=== PATIENT | female | born 1935 | race Two or more races ===

== ENCOUNTER 2022-09-30 16:00 | Inpatient (IN) | payer OTHER, MEDICAID ==
[~2022-09-30] VITALS: Ht 170.7 cm; Wt 74.4 kg
[2022-09-30 20:27] VITALS: BP 125/51
[2022-09-30] MEDS ORDERED: ONDANSETRON HCL 4 MG/2 ML VIAL IV PRN (21:15)
[2022-09-30] MEDS ORDERED: HYDROcodone-ACET 5/325MG TAB PO PRN (21:15)
[2022-09-30] MEDS ORDERED: hydrALAZINE HCL 10 MG TAB PO PRN (21:15)
[2022-09-30] MEDS ORDERED: POLYETHYLENE GLYCOL 17 GM PWDR PO PRN (21:15)
[2022-09-30] MEDS ORDERED: ACETAMINOPHEN 325 MG TAB PO PRN (21:15)
[2022-09-30] MEDS ORDERED: SENNA 8.6 MG TAB PO PRN (21:15)
[2022-09-30 22:00] VITALS: BP 110/48
[2022-09-30] MEDS: methylPREDNISolone SOD SUCC 40 MG/ML VL IV SCH (23:42)
[2022-09-30] MEDS: ATORVASTATIN 20 MG TAB PO SCH (23:43)
[2022-09-30] MEDS: OXYBUTYNIN CHL 5 MG TAB PO SCH (23:43)
[2022-09-30] MEDS: AZITHROMYCIN 250 MG TAB PO SCH (23:43)
[2022-10-01] MEDS: ALBUTEROL SULF 2.5 MG/0.5ML(0.5%) NEB SOLN NEB SCH ×6 (00:17→22:02)
[2022-10-01 02:25] VITALS: BP 125/51
[2022-10-01 05:00] VITALS: BP 102/46
[2022-10-01] MEDS: methylPREDNISolone SOD SUCC 40 MG/ML VL IV SCH ×3 (05:54→21:13)
[2022-10-01] MEDS: LEVOTHYROXINE SODIUM 50 MCG TAB PO SCH (05:54)
[2022-10-01 06:13] LABS: Basophils # (auto) 0 10 ^3/uL (0-0.2); Basophils % (auto) 0.1 % (0.0-2.0); Eosinophils # (auto) 0 10 ^3/uL (0-0.8); Hemoglobin 11.2 g/dL (12.2-16.2); Lymphocytes % (auto) 5.2 % (10.0-50.0); Mean Corpuscular Hemoglobin 29.4 pg (28.0-32.0); Mean Corpuscular Hgb Conc. 32.8 g/dL (32.0-36.0); Mean Corpuscular Volume 89.6 fL (80.0-100.0); Monocytes # (auto) 0.3 10 ^3/uL (0-1.3); Monocytes % (auto) 1.5 % (0.0-12.0); Neutrophils # (auto) 17.4 10 ^3/uL (1.6-8.6); Neutrophils % (auto) 93.2 % (37.0-80.0); Red Cell Distribution Width 15.4 % (11.8-14.3); White Blood Cell 18.6 10^3/uL (4.4-10.8)
[2022-10-01 06:27] LABS: Calcium 8.4 mg/dL (8.5-10.1)
[2022-10-01 06:29] LABS: BUN/Creatinine Ratio 31.3 (10.0-20.0)
[2022-10-01 09:00] VITALS: BP 103/51
[2022-10-01] MEDS: OXYBUTYNIN CHL 5 MG TAB PO SCH ×2 (09:57→21:13)
[2022-10-01] MEDS: LISINOPRIL 10 MG TAB PO SCH (09:57)
[2022-10-01 12:41] VITALS: BP 110/44
[2022-10-01] MEDS: ACETYLCYSTEINE 20%(200MG/ML) SOL 4ML NEB SCH ×2 (14:09→22:00)
[2022-10-01 17:00] VITALS: BP 100/39
[2022-10-01] MEDS: AZITHROMYCIN 250 MG TAB PO SCH (21:14)
[2022-10-01 22:00] VITALS: BP 135/60
[2022-10-01] MEDS: ATORVASTATIN 20 MG TAB PO SCH (22:00)
[2022-10-02] MEDS: ALBUTEROL SULF 2.5 MG/0.5ML(0.5%) NEB SOLN NEB SCH ×6 (02:00→21:53)
[2022-10-02 05:00] VITALS: BP 116/48
[2022-10-02] MEDS: LEVOTHYROXINE SODIUM 50 MCG TAB PO SCH (06:20)
[2022-10-02] MEDS: methylPREDNISolone SOD SUCC 40 MG/ML VL IV SCH ×3 (06:28→23:24)
[2022-10-02] MEDS: ACETYLCYSTEINE 20%(200MG/ML) SOL 4ML NEB SCH ×3 (06:56→21:53)
[2022-10-02 07:11] LABS: Basophils # (auto) 0 10 ^3/uL (0-0.2); Eosinophils # (auto) 0 10 ^3/uL (0-0.8); Hematocrit 34.3 % (36.0-46.0); Hemoglobin 11.5 g/dL (12.2-16.2); Lymphocytes # (auto) 0.9 10 ^3/uL (0.4-5.4); Mean Corpuscular Hgb Conc. 33.5 g/dL (32.0-36.0); Mean Corpuscular Volume 89.5 fL (80.0-100.0); Monocytes # (auto) 0.5 10 ^3/uL (0-1.3); Neutrophils # (auto) 22.1 10 ^3/uL (1.6-8.6); Nucleated Red Blood Cells % 0.1 %; Red Blood Cells 3.83 10^6/uL (4.0-5.20); Red Cell Distribution Width 15.2 % (11.8-14.3); White Blood Cell 23.5 10^3/uL (4.4-10.8)
[2022-10-02 07:27] LABS: Calcium 8.6 mg/dL (8.5-10.1); Potassium 4.5 mmol/L (3.5-5.1)
[2022-10-02 07:29] LABS: BUN/Creatinine Ratio 45.5 (10.0-20.0)
[2022-10-02 08:00] VITALS: BP 102/45
[2022-10-02] MEDS: OXYBUTYNIN CHL 5 MG TAB PO SCH ×2 (10:04→23:22)
[2022-10-02] MEDS: LISINOPRIL 10 MG TAB PO SCH (10:04)
[2022-10-02 12:55] VITALS: BP 120/51
[2022-10-02 16:43] VITALS: BP 119/54
[2022-10-02 22:00] VITALS: BP 117/50
[2022-10-02] MEDS: ATORVASTATIN 20 MG TAB PO SCH (23:23)
[2022-10-02] MEDS: AZITHROMYCIN 250 MG TAB PO SCH (23:23)
[2022-10-03] MEDS: ALBUTEROL SULF 2.5 MG/0.5ML(0.5%) NEB SOLN NEB SCH ×6 (02:00→21:41)
[2022-10-03 05:00] VITALS: BP 136/64
[2022-10-03 05:59] LABS: Basophils # (auto) 0 10 ^3/uL (0-0.2); Basophils % (auto) 0.1 % (0.0-2.0); Eosinophils # (auto) 0 10 ^3/uL (0-0.8); Hematocrit 32.7 % (36.0-46.0); Hemoglobin 10.9 g/dL (12.2-16.2); Lymphocytes # (auto) 0.8 10 ^3/uL (0.4-5.4); Lymphocytes % (auto) 5.1 % (10.0-50.0); Mean Corpuscular Hemoglobin 29.3 pg (28.0-32.0); Mean Corpuscular Hgb Conc. 33.4 g/dL (32.0-36.0); Mean Corpuscular Volume 87.7 fL (80.0-100.0); Monocytes # (auto) 0.3 10 ^3/uL (0-1.3); Monocytes % (auto) 1.8 % (0.0-12.0); Neutrophils # (auto) 14.3 10 ^3/uL (1.6-8.6); Red Blood Cells 3.73 10^6/uL (4.0-5.20); White Blood Cell 15.4 10^3/uL (4.4-10.8)
[2022-10-03] MEDS: ACETYLCYSTEINE 20%(200MG/ML) SOL 4ML NEB SCH ×3 (06:09→21:42)
[2022-10-03 06:26] LABS: Calcium 8.4 mg/dL (8.5-10.1); Potassium 4.9 mmol/L (3.5-5.1)
[2022-10-03 06:29] LABS: BUN/Creatinine Ratio 48.8 (10.0-20.0)
[2022-10-03] MEDS: methylPREDNISolone SOD SUCC 40 MG/ML VL IV SCH ×3 (06:52→21:39)
[2022-10-03] MEDS: LEVOTHYROXINE SODIUM 50 MCG TAB PO SCH (06:54)
[2022-10-03 09:00] VITALS: BP 140/58
[2022-10-03] MEDS: OXYBUTYNIN CHL 5 MG TAB PO SCH ×2 (10:13→21:37)
[2022-10-03] MEDS: LISINOPRIL 10 MG TAB PO SCH (10:14)
[2022-10-03 13:00] VITALS: BP 125/50
[2022-10-03 17:00] VITALS: BP 148/80
[2022-10-03] MEDS: AZITHROMYCIN 250 MG TAB PO SCH (21:37)
[2022-10-03] MEDS: ATORVASTATIN 20 MG TAB PO SCH (21:39)
[2022-10-03 22:00] VITALS: BP 147/59
[2022-10-04] MEDS: ALBUTEROL SULF 2.5 MG/0.5ML(0.5%) NEB SOLN NEB SCH ×6 (02:00→22:21)
[2022-10-04 02:36] VITALS: BP 147/59
[2022-10-04 05:00] VITALS: BP 151/57
[2022-10-04] MEDS: methylPREDNISolone SOD SUCC 40 MG/ML VL IV SCH ×3 (05:59→22:14)
[2022-10-04] MEDS: LEVOTHYROXINE SODIUM 50 MCG TAB PO SCH (06:01)
[2022-10-04] MEDS: ACETYLCYSTEINE 20%(200MG/ML) SOL 4ML NEB SCH (06:40)
[2022-10-04] MEDS: LISINOPRIL 10 MG TAB PO SCH (09:05)
[2022-10-04] MEDS: OXYBUTYNIN CHL 5 MG TAB PO SCH ×2 (09:05→22:13)
[2022-10-04 09:28] VITALS: BP 144/55
[2022-10-04 12:50] VITALS: BP 135/42
[2022-10-04 17:00] VITALS: BP 142/60
[2022-10-04] MEDS: AZITHROMYCIN 250 MG TAB PO SCH (20:43)
[2022-10-04 22:00] VITALS: BP 141/50
[2022-10-04] MEDS: ATORVASTATIN 20 MG TAB PO SCH (22:14)
[2022-10-05] MEDS: ALBUTEROL SULF 2.5 MG/0.5ML(0.5%) NEB SOLN NEB SCH ×4 (02:00→13:48)
[2022-10-05 05:00] VITALS: BP 131/42
[2022-10-05] MEDS: methylPREDNISolone SOD SUCC 40 MG/ML VL IV SCH (06:24)
[2022-10-05] MEDS: LEVOTHYROXINE SODIUM 50 MCG TAB PO SCH (06:25)
[2022-10-05 08:38] VITALS: BP 133/50
[2022-10-05] MEDS: OXYBUTYNIN CHL 5 MG TAB PO SCH (09:26)
[2022-10-05] MEDS: LISINOPRIL 10 MG TAB PO SCH (09:26)
[2022-10-05 12:44] VITALS: BP 124/45
[2022-10-05 13:56] VITALS: BP 133/50
[2022-10-05] MEDS ORDERED: methylPREDNISolone SOD SUCC 40 MG/ML VL IV SCH (22:00)
== END 2022-10-05 17:20 | disposition home or self-care (01) | DRG 189 ==
LOC: TELE-WESTW 19:37
PROVIDERS: ADMIT Internal Medicine; ATTEND Internal Medicine
DX: J96.21 Acute and chronic respiratory failure with hypoxia (principal); J45.901 Unspecified asthma with (acute) exacerbation; J90 Pleural effusion, not elsewhere classified; J98.11 Atelectasis; E87.6 Hypokalemia; I10 Essential (primary) hypertension; J84.10 Pulmonary fibrosis, unspecified; E03.9 Hypothyroidism, unspecified; E78.5 Hyperlipidemia, unspecified; I89.0 Lymphedema, not elsewhere classified; Z88.2 Allergy status to sulfonamides
CPT/HCPCS: 36415; 80048; 85025; 87070; 87081; 87086; 87205; 94640; G0378

== ENCOUNTER 2023-08-26 23:53 | Emergency (ER) | payer OTHER, MEDICAID ==
[~2023-08-26] VITALS: Ht 167.6 cm; Wt 77.2 kg
[2023-08-27 00:10] VITALS: PULSE 88; RESP 22; O2SAT 93
[2023-08-27 01:39] LABS: Chloride 108 mmol/L (98-107); Potassium 3.9 mmol/L (3.5-5.1); Sodium 139 mmol/L (136-145)
[2023-08-27 01:40] LABS: Anion Gap 8 (5-15); Calcium 9.8 mg/dL (8.5-10.1); Carbon Dioxide 23 mmol/L (20-30)
[2023-08-27 01:41] LABS: Urine Bacteria None Seen /hpf (None Seen)
[2023-08-27 01:45] LABS: BUN/Creatinine Ratio 15.7 (10.0-20.0); Blood Urea Nitrogen 14 mg/dL (9-23); Glucose 89 mg/dL (74-106)
[2023-08-27 01:47] LABS: Urine Blood Negative /uL (Negative); Urine Clarity Clear (Clear); Urine Color Light-Yellow (Yellow); Urine Protein, UAD Negative (Negative); Urine Specific Gravity 1.011 (1.001-1.035); Urine Urobilinogen Normal (Negative); Urine WBC <1 /hpf (0 - 5)
[2023-08-27 01:59] LABS: Basophils # (auto) 0 10 ^3/uL (0-0.2)
[2023-08-27 02:24] LABS: Basophils % (auto) 0.4 % (0.0-2.0); Eosinophils # (auto) 0.1 10 ^3/uL (0-0.8); Eosinophils % (auto) 0.5 % (0.0-7.0); Hematocrit 45.1 % (36.0-46.0); Hemoglobin 14.7 g/dL (12.2-16.2); Lymphocytes # (auto) 2.3 10 ^3/uL (0.4-5.4); Lymphocytes % (auto) 18.4 % (10.0-50.0); Mean Corpuscular Hemoglobin 30.1 pg (28.0-32.0); Mean Corpuscular Hgb Conc. 32.6 g/dL (32.0-36.0); Mean Corpuscular Volume 92.3 fL (80.0-100.0); Monocytes # (auto) 0.8 10 ^3/uL (0-1.3); Monocytes % (auto) 6.7 % (0.0-12.0); Neutrophils # (auto) 9.3 10 ^3/uL (1.6-8.6); Red Blood Cells 4.88 10^6/uL (4.0-5.20); Red Cell Distribution Width 14.7 % (11.8-14.3); White Blood Cell 12.6 10^3/uL (4.4-10.8)
[2023-08-27 03:10] VITALS: TEMP 98
[2023-08-27 03:15] VITALS: PULSE 77; RESP 10; O2SAT 98
[2023-08-27 04:00] VITALS: BP 134/60; PULSE 63; RESP 16; O2SAT 100
== END 2023-08-27 10:14 | disposition home or self-care (01) ==
LOC: EDBD 23:53 → ER 23:53
DX: S09.8XXA Other specified injuries of head, initial encounter (principal); R07.81 Pleurodynia; I11.0 Hypertensive heart disease with heart failure; I50.9 Heart failure, unspecified; Z88.2 Allergy status to sulfonamides; W18.09XA Striking against other object with subsequent fall, initial encounter; Y93.89 Activity, other specified; Y92.89 Other specified places as the place of occurrence of the external cause; Y99.8 Other external cause status
CPT/HCPCS: 36415; 70450; 71045; 80048; 81001

== ENCOUNTER 2024-06-22 10:06 | Inpatient (IN) | payer OTHER, MEDICAID ==
[~2024-06-22] VITALS: Ht 167.6 cm; Wt 83.3 kg
--- NOTE | 2024-06-22 10:29 | ECG ---
[facility] Test Date: 2024-06-22 Test Time: 10:15:12 Pat Name: DEWAYNE MICHELLE Department: ER Room: 0274T Gender: F Enrollment Advisor: KENNEY : 1935 Requested By: GINI MCGREGOR Order Number: [id number] Reading MD: Itz Manuel Measurements Intervals [place] Rate: 83 P: 79 IN: 225 QRS: 61 QRSD: 86 T: 55 QT: 397 QTc: 467 Interpretive Statements Sinus rhythm Ventricular premature complex Prolonged IN interval Electronically Signed On 06-23-2024 17:51:27 PST by Itz Manuel Please click the below link to view image of tracing.
--- NOTE | 2024-06-22 10:45 | DVH ---
EXAM: XY CHEST PORTABLE Indication: CP Technique: Single frontal view of the chest was obtained Comparison: XY CHEST PORTABLE on DOS: 08/27/23 FINDINGS: Lines and Tubes: None Lungs: No focal consolidation. Pleura: No effusion. No pneumothorax. Cardiomediastinal contours: Unremarkable Bones: No acute osseous abnormality. IMPRESSION: No acute cardiopulmonary disease.
[2024-06-22 10:53] LABS: Basophils # (auto) 0 10 ^3/uL (0-0.2); Basophils % (auto) 0.4 % (0.0-2.0); Eosinophils # (auto) 0.1 10 ^3/uL (0-0.8); Hematocrit 41.3 % (36.0-46.0); Hemoglobin 13.6 g/dL (12.2-16.2); Lymphocytes # (auto) 1.5 10 ^3/uL (0.4-5.4); Lymphocytes % (auto) 18.2 % (10.0-50.0); Mean Corpuscular Hemoglobin 29.7 pg (28.0-32.0); Monocytes # (auto) 0.6 10 ^3/uL (0-1.3); Monocytes % (auto) 6.8 % (0.0-12.0); Neutrophils # (auto) 5.9 10 ^3/uL (1.6-8.6); Neutrophils % (auto) 73.6 % (37.0-80.0); Nucleated Red Blood Cells % 0.1 %; Platelet Count (auto) 184 10^3/uL (140-450); Red Blood Cells 4.59 10^6/uL (4.0-5.20); Red Cell Distribution Width 14.5 % (11.8-14.3); White Blood Cell 8.1 10^3/uL (4.4-10.8)
[2024-06-22 10:59] VITALS: PULSE 78; RESP 12; O2SAT 98
--- NOTE | 2024-06-22 10:59 | ED.PDOC ---
History of Present Illness HPI Comments 89-year-old female who comes in with chief complaint of status post fall in the restroom on Tuesday night. The patient fell down and landed on the left chest. She did not come in to the ER but this morning she started complaining of increased pain as well as some shortness for breath. There was no loss of consciousness or any head trauma. When the paramedics arrived, they heard decreased lung sounds on the left with some rhonchi. They did give her a hand- held nebulizer of albuterol which seemed to help some. The patient denies any vomiting or diarrhea. The patient currently resides [facility]. 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 Location: Left rib pain Associated signs and symptoms Pain to the left rib area with some shortness for breath Past Medical History PAST MEDICAL HISTORY: Asthma, CHF, COPD, High Lipids, HTN, Thyroid, TIA Surgical History: Hysterectomy, Tonsillectomy Surgical History (Other): Cataract surgery BRAID MAKER History: No Pertinent BRAID MAKER History Family History Family History: Family hx of heart nicolas Social History Smoker: Non-Smoker Alcohol: Denies ETOH Use Drugs: Denies Drug Use Lives In: Home Constitutional: denies: chills, diaphoresis, fatigue, fever, malaise, sweats, weakness, others EENTM: denies: blurred vision, double vision, ear bleeding, ear discharge, ear drainage, ear pain, ear ringing, eye pain, eye redness, hearing loss, mouth pain, mouth swelling, nasal discharge, nose bleeding, nose congestion, nose pain, photophobia, tearing, throat pain, throat swelling, voice changes, others Respiratory: reports: shortness of breath; denies: cough, hemoptysis, orthopnea, SOB at rest, SOB with excertion, stridor, wheezing, others Cardiovascular: reports: chest pain (Left-sided rib pain); denies: dizzy spells, diaphoresis, Dyspnea on exertion, edema, irregular heart beat, left arm pain, lightheadedness, palpitations, PND, syncope, others Gastrointestinal: denies: abdomen distended, abdominal pain, blood streaked bowels, constipated, diarrhea, dysphagia, difficulty swallowing, hematemesis, melena, nausea, poor appetite, poor fluid intake, rectal bleeding, rectal pain, vomiting, others Genitourinary: denies: abnormal vagina bleeding, burning, dyspareunia, dysuria, flank pain, frequency, hematuria, incontinence, pain, , vagina discharge, urgency, others Neurological: denies: dizziness, fainting, headache, left sided numbness, left sided weakness, numbness, paresthesia, pre-existing deficit, right sided numbness, right sided weakness, seizure, speech problems, tingling, tremors, weakness, others Musculoskeletal: denies: back pain, gout, joint pain, joint swelling, muscle pain, muscle stiffness, neck pain, others Integumetry: denies: bruises, change in color, change in hair/nails, dryness, laceration, lesions, lumps, rash, wounds, others Allergic/Immunocompromised: denies: Difficulty Healing, Frequent Infections, Hives, Itching, others Hematologic/Lymphatic: denies: anemia, blood clots, easy bleeding, easy bruising, swollen glands, others Endocrine: denies: excessive hunger, excessive sweating, excessive thirst, excessive urination, flushing, intolerance to cold, intolerance to heat, unexplained weight gain, unexplained weight loss, others Psychiatric: denies: anxiety, bipolar disorder, depression, hopeless, panic disorder, schizophrenia, sleepless, suicidal, others Physical Exam General Appearance: Moderate Distress HEENT: Normal ENT Inspection, Pharynx Normal, TMs Normal Neck: Full Range of Motion, Non-Tender, Normal, Normal Inspection Respiratory: Decreased Breath Sounds (Decreased on the left side), No Accessory Muscle Use, Respiratory Distress, Other (Tenderness to the left rib area) Cardiovascular: No Edema, No JVD, No Murmur, No Gallop, Normal Peripheral Pulses, Regular Rate/Rhythm Breast Exam: Deferred Gastrointestinal: No Organomegaly, Non Tender, No Pulsatile Mass, Normal Bowel Sounds, Soft Genitalia: Deferred Pelvic: Deferred Rectal: Deferred Extremities: No calf tenderness, Normal capillary refill, Normal inspection, Normal range of motion, Non-tender, No pedal edema Musculoskeletal : Apperance: Normal Neurologic: Alert, hospital staff pharmacist II-XII nml as Tested, No Motor Deficits, Normal Affect, Normal Mood, No Sensory Deficits Cerebellar Function: Normal Reflexes: Normal Skin: Dry, Normal Color, Warm Lymphatic: No Adenopathy Was a procedure done? Was a procedure done?: No EKG EKG : Pulse Rate (adult): 89 [place]: Normal Cardiac Rhythm: NSR Block: None ST: Nonsp Differential Dx Considerations may include: Contusion, fracture, pneumothorax X-Ray, Labs, Meds, VS Vital Signs Date Time Temp Pulse Resp B/P (MAP) Pulse Ox O2 Delivery O2 Flow Rate FiO2 06/22/24 12:00 76 06/22/24 11:04 98.6 78 12 133/58 (83) 98 98.6 06/22/24 10:59 78 12 98 Room Air* 0 21 06/22/24 10:59 89 06/22/24 10:15 98.2 77 22 147/53 (84) 96 06/22/24 10:15 83 06/22/24 10:14 22 96 Nasal Cannula* 2 28 Lab Test 06/22/24 14:00 06/22/24 11:40 06/22/24 10:40 Range/Units Troponin I High Sensitivity Pending 5 </=34 ng/L Urine Color Colorless Yellow Urine Clarity Turbid H Clear Urine pH 6.0 5.0-9.0 Urine Specific [place] 1.004 1.001-1.035 Urine Protein Negative Negative Urine Ketones Negative Negative Urine Blood Trace H Negative /uL Urine Nitrite Negative Negative Urine Bilirubin Negative Negative Urine Urobilinogen Normal Negative mg/dL Urine Leukocyte Esterase 3+ Negative /uL Urine RBC 4 0 - 4 /hpf Urine Microscopic WBC 223 H 0-5 /HPF Urine Squamous Epithelial Cells Few <5 /hpf Urine Bacteria Few H None Seen /hpf Urine Yeast (Budding) Occasional None Seen /hpf Urine Glucose Normal Normal mg/dL White Blood Count 8.1 4.4-10.8 10^3/uL Red Blood Count 4.59 4.0-5.20 10^6/uL Hemoglobin 13.6 12.2-16.2 g/dL Hematocrit 41.3 36.0-46.0 % Mean Corpuscular Volume 90.0 80.0-100.0 fL Mean Corpuscular Hemoglobin 29.7 28.0-32.0 pg Mean Corpuscular Hemoglobin Concent 33.0 32.0-36.0 g/dL Red Cell Distribution Width 14.5 H 11.8-14.3 % Platelet Count 184 140-450 10^3/uL Mean Platelet Volume 7.2 6.9-10.8 fL Neutrophils (%) (Auto) 73.6 37.0-80.0 % Lymphocytes (%) (Auto) 18.2 10.0-50.0 % Monocytes (%) (Auto) 6.8 0.0-12.0 % Eosinophils (%) (Auto) 1.0 0.0-7.0 % Basophils (%) (Auto) 0.4 0.0-2.0 % Neutrophils # (Auto) 5.9 1.6-8.6 10 ^3/uL Lymphocytes # (Auto) 1.5 0.4-5.4 10 ^3/uL Monocytes # (Auto) 0.6 0-1.3 10 ^3/uL Eosinophils # (Auto) 0.1 0-0.8 10 ^3/uL Basophils # (Auto) 0 0-0.2 10 ^3/uL Nucleated Red Blood Cells 0.1 % D-Dimer, Quantitative 1.42 H 0.0-0.49 mg/L FEU Sodium Level 137 136-145 mmol/L Potassium Level 4.1 3.5-5.1 mmol/L Chloride Level 103 98-107 mmol/L Carbon Dioxide Level 26 20-31 mmol/L Anion Gap 8 5-15 Blood Urea Nitrogen 22 9-23 mg/dL Creatinine 0.98 0.550-1.02 mg/dL Glomerular Filtration Rate Calc 55 >90 mL/min BUN/Creatinine Ratio 22.4 H 10.0-20.0 Serum Glucose 109 H 74-106 mg/dL Calcium Level 9.6 8.7-10.4 mg/dL B-Type Natriuretic Peptide 48.08 0-100 pg/mL The patient's CBC is within normal limits. The chest x-ray shows no sign of any abnormalities The D-dimer is elevated 1.42 The CBC and chemistry panel are within normal limits At this time, the patient was being admitted to the hospitalist. The patient was given Rocephin 1 g IV piggyback Images Reviewed?: Images reviewed and evaluated by me Time of 1ST Reevaluation: 10:59 Reevaluation 1ST: Improved Patient Education/Counseling: Diagnosis, Treatment, Prognosis Family Education/Counseling: No Family Present Departure 1 Departure Time of Disposition: 11:39 Impression: Primary Impression: Shortness of breath Additional Impressions: Elevated d-dimer History of fall Generalized weakness UTI (urinary tract infection) Qualified Codes: N30.01 - Acute cystitis with hematuria Disposition: ADMITTED INPATIENT Admit to: Tele Condition: Fair e-Prescriptions Unable to Obtain Active Prescriptions or Reported Meds Critical Care Note Critical Care Time?: No Stability Stability form required: Yes Unstable for transfer: Telemetry monitoring (Telemetry monitoring required), ED Physician Assesment (Clinical assesment) Heart Score Heart Score: Heart Score Response (Comments) Value History N/A 0 EKG N/A 0 Age N/A 0 Risk Factors N/A 0 Troponin N/A 0 Total 0 GINI MCGREGOR MD Jun 22, 2024 10:59
[2024-06-22 11:32] LABS: Chloride 103 mmol/L (98-107); Potassium 4.1 mmol/L (3.5-5.1); Sodium 137 mmol/L (136-145)
[2024-06-22 11:33] LABS: Anion Gap 8 (5-15); Carbon Dioxide 26 mmol/L (20-31)
[2024-06-22 11:34] LABS: Calcium 9.6 mg/dL (8.7-10.4)
[2024-06-22 11:39] LABS: BUN/Creatinine Ratio 22.4 (10.0-20.0); Blood Urea Nitrogen 22 mg/dL (9-23)
[2024-06-22 11:40] LABS: Glucose 109 mg/dL (74-106)
[2024-06-22 14:14] LABS: Urine Bacteria FEW /hpf (None Seen); Urine Blood TRACE /uL (Negative); Urine Budding Yeast OCCASIONAL /hpf (None Seen); Urine Clarity Turbid (Clear); Urine Color Colorless (Yellow); Urine Protein, UAD Negative (Negative); Urine Specific Gravity 1.004 (1.001-1.035); Urine Squamous Epithelial Cell FEW /hpf (<5); Urine Urobilinogen Normal (Negative); Urine WBC 223 /HPF (0-5)
[2024-06-22] MEDS ORDERED: NITROGLYCERIN 0.4 MG SL TAB SL PRN (14:45)
[2024-06-22] MEDS ORDERED: ACETAMINOPHEN 500 MG TAB or CAP PO PRN (14:45)
--- NOTE | 2024-06-22 14:54 | DVHHP2 ---
History of Present Illness Reason for Visit: Mechanical fall with residual left rib pain History of Present Illness The patient was an 89-year-old female has poor with the hospital by EMS with reports of shortness of breaths, left rib pain after having a mechanical fall. Patient reports that she fell and hit the bathtub approximately two days ago at her residential facility. She states that she was had progressive shortness of breath, decreased ambulation, with the pain worsening today requiring her to call 911. The patient was overall a poor historian. Appears that her insurance has replaced as on hospice care. She does report a significant history of hypertension, COPD, and congestive heart failure. Upon further assessment of the patient, she was found to have severe right lower extremity swelling with redness. Patient will be admitted in the hospital for further workup. Cardiovascular: CHF, HTN Pulmonary: COPD Past Surgical History: Other (Denies) Family History: None ALCOHOL: none Drugs: None Lives: Other (Residential facility) Review of Systems Constitutional: No: Fever, Chills, Sweats, Weakness, Malaise, Other Eyes: No: Pain, Vision change, Conjunctivae inflammation, Eyelid inflammation, Other, Redness ENT: No: Ear pain, Ear discharge, Nose pain, Nose discharge, Nose congestion, Mouth pain, Mouth swelling, Throat pain, Throat swelling, Other Respiratory: Shortness of breath, Pleuritic Pain Cardiovascular: Chest Pain Gastrointestinal: No: Nausea, Vomiting, Abdominal Pain, Diarrhea, Constipation, Melena, Hematochezia, Other Genitourinary: No Dysuria, No Frequency, No Incontinence, No Hematuria, No Retention, No Other Musculoskeletal: No: other, neck pain, shoulder pain, arm pain, back pain, hand pain, leg pain, foot pain Skin: No: Rash, Lesions, Jaundice, Bruising, Other Neurological: No: Weakness, Numbness, Incoordination, Change in speech, Confusion, Seizures, Other Allergies: Coded Allergies: Sulfa Antibiotics (Verified Allergy, Unknown, 09/30/22) Exam Vital Signs Vital Signs Date Time Temp Pulse Resp B/P (MAP) Pulse Ox O2 Delivery O2 Flow Rate FiO2 06/22/24 12:00 76 06/22/24 11:04 98.6 12 133/58 (83) 98 98.6 06/22/24 10:59 Room Air* 0 21 General Appearance: Alert, Oriented X3, Cooperative, mild distress HEENT: Atraumatic, PERRLA Respiratory: Clear to auscultation, Normal air movement, Other (Tenderness with assessment of chest cavity) Cardiovascular: Normal S1, Normal S2 Abdominal: Normal bowel sounds, Soft, No tenderness Extremities: No clubbing, No cyanosis, Normal pulses, Other (Redness and swelling to right lower extremity) Skin: No rashes, No breakdown Psych/Mental Status: Mental status NL, Mood NL Labs/Xrays Labs Test 06/22/24 14:00 06/22/24 11:40 06/22/24 10:40 Range/Units Urine Color Colorless Yellow Urine Clarity Turbid H Clear Urine pH 6.0 5.0-9.0 Urine Specific [place] 1.004 1.001-1.035 Urine Protein Negative Negative Urine Ketones Negative Negative Urine Blood Trace H Negative /uL Urine Nitrite Negative Negative Urine Bilirubin Negative Negative Urine Urobilinogen Normal Negative mg/dL Urine Leukocyte Esterase 3+ Negative /uL Urine RBC 4 0 - 4 /hpf Urine Microscopic WBC 223 H 0-5 /HPF Urine Squamous Epithelial Cells Few <5 /hpf Urine Bacteria Few H None Seen /hpf Urine Yeast (Budding) Occasional None Seen /hpf Urine Glucose Normal Normal mg/dL White Blood Count 8.1 4.4-10.8 10^3/uL Red Blood Count 4.59 4.0-5.20 10^6/uL Hemoglobin 13.6 12.2-16.2 g/dL Hematocrit 41.3 36.0-46.0 % Mean Corpuscular Volume 90.0 80.0-100.0 fL Mean Corpuscular Hemoglobin 29.7 28.0-32.0 pg Mean Corpuscular Hemoglobin Concent 33.0 32.0-36.0 g/dL Red Cell Distribution Width 14.5 H 11.8-14.3 % Platelet Count 184 140-450 10^3/uL Mean Platelet Volume 7.2 6.9-10.8 fL Neutrophils (%) (Auto) 73.6 37.0-80.0 % Lymphocytes (%) (Auto) 18.2 10.0-50.0 % Monocytes (%) (Auto) 6.8 0.0-12.0 % Eosinophils (%) (Auto) 1.0 0.0-7.0 % Basophils (%) (Auto) 0.4 0.0-2.0 % Neutrophils # (Auto) 5.9 1.6-8.6 10 ^3/uL Lymphocytes # (Auto) 1.5 0.4-5.4 10 ^3/uL Monocytes # (Auto) 0.6 0-1.3 10 ^3/uL Eosinophils # (Auto) 0.1 0-0.8 10 ^3/uL Basophils # (Auto) 0 0-0.2 10 ^3/uL Nucleated Red Blood Cells 0.1 % D-Dimer, Quantitative 1.42 H 0.0-0.49 mg/L FEU Sodium Level 137 136-145 mmol/L Potassium Level 4.1 3.5-5.1 mmol/L Chloride Level 103 98-107 mmol/L Carbon Dioxide Level 26 20-31 mmol/L Anion Gap 8 5-15 Blood Urea Nitrogen 22 9-23 mg/dL Creatinine 0.98 0.550-1.02 mg/dL Glomerular Filtration Rate Calc 55 >90 mL/min BUN/Creatinine Ratio 22.4 H 10.0-20.0 Serum Glucose 109 H 74-106 mg/dL Calcium Level 9.6 8.7-10.4 mg/dL B-Type Natriuretic Peptide 48.08 0-100 pg/mL Assessment/Plan Assessment/Plan Impression: -mechanical fall -elevated D-dimer, rule out pulmonary embolism -acute decompensated diastolic heart failure -right lower extremity cellulitis -COPD -primary hypertension Plan: -admit to telemetry unit -echocardiogram -IV diuresis -antibiotic therapy: Doxycycline, Rocephin -CT angiogram of the chest. Unsure if patient has any allergies to contrast or shellfish. Patient will be premedicated with Solu-Medrol, Benadryl, Pepcid -bronchodilators as needed -pain management -repeat labs in a.m. -DVT study Total time spent with patient discussing and formulating plan of care: 35 minutes. This medical document was created using an electronic medical record system with [employer] system. Although this document has been carefully reviewed, there may still be some phonetic and typographical errors. These areas are purely typographical due to imperfections of the software programs, and do not reflect any compromise in the patient's medical care. Plan discussed with: Patient, Other (RN) My Orders Orders - KYLIE MODI VALUATION MANAGER Procedure Category Date Status Time Admit ADMIT 06/22/24 Verified 14:35 Nitroglycerin PHA 06/22/24 Verified Sublingual (Ntrostat 14:45 Morphine Sulfate PHA 06/22/24 Verified Injection 14:45 Stat Ekg For Chest [facility] 06/22/24 Verified Pain 14:35 Notify Of Changes [facility] 06/22/24 Verified From Base 14:35 Private Client Advisor For [facility] 06/22/24 Verified 24 Hours 14:35 Emergency Dysrhythmia [facility] 06/22/24 Verified Protocol 14:35 Rhythm Strips Once [facility] 06/22/24 Verified Every Shift 14:35 Oxygen By Nasal RT 06/22/24 Verified Cannula 14:35 Echo 2d Mode Cardiac US 06/22/24 Verified DOP 14:35 Cardiac DIET 06/22/24 Verified Diet-2gna,Lofat,Lochol Dinner Ct Angio Chest CT 06/22/24 Verified Contrast 14:35 Methylprednisolone PHA 06/22/24 Verified Sod Succ (Solu Medrol 14:45 Diphenhdramine PHA 06/22/24 Verified Injection (Benadryl 14:45 Famotidine Injection PHA 06/22/24 Verified (Pepcid Injection) 14:45 Bilat Lower Dvt US 06/22/24 Verified 14:35 Ceftriaxone Ivpb PHA 06/22/24 Verified Rocephin 14:45 Florastor (S. PHA 06/23/24 Verified Boulardii) (Florastor) 10:00 Doxycycline Tablet PHA 06/22/24 Verified (Vibramycin Tablet) 22:00 Furosemide Injection PHA 06/23/24 Verified (Lasix Injection) 10:00 Morphine Sulfate PHA 06/22/24 Verified Injection 14:45 Hydrocodone-Acet PHA 06/22/24 Verified 5/325mg Tab ([place] 14:45 Acetaminophen Tablet PHA 06/22/24 Verified (Tylenol Tablet) 14:45 Ondansetron Hcl PHA 06/22/24 Verified (Zofran) 14:45 Docusate Sodium PHA 06/22/24 Verified Capsule (Colace 14:45 Albuterol Medneb PHA 06/22/24 Verified (Ventolin Medneb) 14:45 Ipratropium Medneb PHA 06/22/24 Verified (Atrovent Medneb) 14:45 Basic Metabolic Panel LAB 06/23/24 Verified 04:00 Complete Blood Count LAB 06/23/24 Verified 04:00 Date of Service: Jun 22, 2024 Billing Provider: KYLIE MODI NP Common Visit Codes: [id number] INP/OBS CARE (HIGH) KYLIE MODI NP Jun 22, 2024 14:54
[2024-06-22] MEDS: IOHEXOL 350 MG/ML 100ML IJ ONE (15:00)
[2024-06-22] MEDS: diphenhdrAMINE HCL 50 MG/1 ML VL IV ONE (15:22)
[2024-06-22] MEDS: methylPREDNISolone SOD SUCC 125 MG/2 ML VL IV ONE (15:27)
[2024-06-22] MEDS: FAMOTIDINE (10MG/ML) 2ML VL IV ONE (15:27)
--- NOTE | 2024-06-22 15:33 | DVH ---
NUCLEAR MEDICINE VENTILATION/PERFUSION LUNG SCAN. INDICATION: PULMONARY EMBOLISM COMPARISON: None TECHNIQUE: Following intravenous demonstration of 5 millicuries of technetium 99m MAA, and inhalatio n of 7.7 MCI OF XENON 133 AEROSOL. scintigrams were obtained in multiple projections of the lungs. FINDINGS: There is normal uptake of radionuclide on both the ventilation and perfusion portions of the examinat ion. No mismatched perfusion defects are demonstrated. Uptake is normally homogeneous. IMPRESSION: 1. Low probability for PE.
[2024-06-22] MEDS: cefTRIAXone 1GM/50ML D5W 50 ML IV ONE (15:45)
[2024-06-22 15:50] VITALS: PULSE 100; RESP 18; O2SAT 94
--- NOTE | 2024-06-22 16:07 | DVH ---
CLINICAL INFORMATION: 89 years old, Female; Rule out PE, pulmonary contusion, left rib pain. TECHNIQUE: Axial CTA images of the chest were obtained after the uneventful administration of 100 mL of Omnipaque 350 IV contrast. Coronal and sagittal reformatted images and MIP images were obtained, reviewed, and stored. One or more of the following dose reduction techniques were used: Automated exp osure control. Adjustment of mA and/or kV according to patient size. CTDIvol = 17.11, 17.76, 0.07, 0.07 mGy DLP = 640.26 mGy-cm COMPARISON: V/Q scan dated 06/22/2024. Chest radiograph dated 06/22/2024. FINDINGS: Pulmonary arteries: No central or lobar pulmonary embolism. Evaluation for segmental or subsegmental pulmonary emboli is limited due to respiratory motion artifact. Aorta: No aneurysm or dissection. Moderate atherosclerotic calcification. Cardiac: Heart size is within normal limits. [id number] coronary artery calcification. Mediastinum/maria luz: No mass or adenopathy. Lungs: Small left pleural effusion with overlying atelectasis. Trace right pleural effusion dependen t atelectasis. No pneumothorax. Chest wall: No mass or other abnormality. Upper abdomen: Visualized structures in the upper abdomen are unremarkable, although evaluation of th e parenchymal organs is limited on arterial phase images. Bones: Acute appearing fracture involving the left anterolateral 6th rib and suspected subtle fractur e involving the left anterolateral 4th rib. Subtle acute fracture involving the lateral aspect of the left 5th rib. Chronic appearing compression fracture of the L1 vertebral body with up to 30% loss of height. IMPRESSION: 1. No central or lobar pulmonary embolism. Evaluation for segmental or subsegmental pulmonary emboli is limited due to respiratory motion artifact. 2. Acute fractures of the left 4th, 5th, and 6th ribs as described above. 3. Small left pleural effusion with overlying atelectasis. No pneumothorax. 4. Trace right pleural effusion with overlying atelectasis. 5. Chronic appearing compression fracture of the L1 vertebral body 6. Additional findings as described above
--- NOTE | 2024-06-22 16:29 | DVH ---
Bilateral lower extremity venous duplex Clinical History: swelling, rule out DVT Comparison: None Technique: Duplex Doppler evaluation of the deep venous systems of both lower extremities from the common femora l veins to the popliteal veins including color Doppler and spectral/pulsed waveform analysis was perf ormed. Findings: RIGHT SIDE: The common femoral vein demonstrates appropriate compressibility and waveform variability. There is compressibility/patency of the great saphenous vein at the proximal thigh. The femoral vein demonstrates appropriate compressibility and waveform variability. The deep femoral vein demonstrates appropriate compressibility and waveform variability. The popliteal vein demonstrates appropriate compressibility and waveform variability. There is normal compressibility at the tibioperoneal trunk. LEFT SIDE: The common femoral vein demonstrates appropriate compressibility and waveform variability. There is compressibility/patency of the great saphenous vein at the proximal thigh. The femoral vein demonstrates appropriate compressibility and waveform variability. The deep femoral vein demonstrates appropriate compressibility and waveform variability. The popliteal vein demonstrates appropriate compressibility and waveform variability. There is normal compressibility at the tibioperoneal trunk. Impression: No right or left femoropopliteal venous thrombosis.
[2024-06-22 17:00] VITALS: BP 163/79; PULSE 82; RESP 18; TEMP 97.6; O2SAT 98
[2024-06-22] MEDS: cefTRIAXone 1GM/50ML D5W 50 ML IV SCH (17:09)
[2024-06-22] MEDS: MORPHINE SULFATE INJ 2 MG/ml SYRG IV PRN (17:10)
[2024-06-22 18:01] VITALS: BP 163/79; PULSE 84; RESP 18; TEMP 98.6; O2SAT 97; O2SAT 98
[2024-06-22 20:00] VITALS: PULSE 89; RESP 18; O2SAT 95
[2024-06-22 21:00] VITALS: BP 149/63; PULSE 85; RESP 18; TEMP 97.6; O2SAT 95
[2024-06-22] MEDS: HYDROcodone-ACET 5/325MG TAB PO PRN (21:40)
[2024-06-22] MEDS: DOXYCYCLINE 100 MG TAB/CAP PO SCH (21:41)
[2024-06-23] VITALS (8 sets, daily range): BP systolic 151–159; BP diastolic 67–88; PULSE 59–85; RESP 17–20; TEMP 97.6–98.8; O2SAT 95–96
[2024-06-23 06:26] LABS: Basophils # (auto) 0 10 ^3/uL (0-0.2); Eosinophils # (auto) 0 10 ^3/uL (0-0.8); Hemoglobin 13.9 g/dL (12.2-16.2); Lymphocytes % (auto) 11.9 % (10.0-50.0); Mean Corpuscular Hemoglobin 30.5 pg (28.0-32.0); Mean Corpuscular Hgb Conc. 33.9 g/dL (32.0-36.0); Mean Corpuscular Volume 89.9 fL (80.0-100.0); Monocytes # (auto) 0.1 10 ^3/uL (0-1.3); Monocytes % (auto) 1.3 % (0.0-12.0); Neutrophils # (auto) 7.1 10 ^3/uL (1.6-8.6); Neutrophils % (auto) 86.8 % (37.0-80.0); Nucleated Red Blood Cells % 0.1 %; Platelet Count (auto) 191 10^3/uL (140-450); Red Blood Cells 4.56 10^6/uL (4.0-5.20); Red Cell Distribution Width 14.2 % (11.8-14.3); White Blood Cell 8.2 10^3/uL (4.4-10.8)
[2024-06-23 06:42] LABS: Chloride 103 mmol/L (98-107); Potassium 4.6 mmol/L (3.5-5.1)
[2024-06-23 06:43] LABS: Anion Gap 8 (5-15); Calcium 9.7 mg/dL (8.7-10.4); Carbon Dioxide 24 mmol/L (20-31)
[2024-06-23 06:48] LABS: BUN/Creatinine Ratio 18.6 (10.0-20.0); Blood Urea Nitrogen 18 mg/dL (9-23)
[2024-06-23 06:51] LABS: Glucose 156 mg/dL (74-106); Sodium 135 mmol/L (136-145)
[2024-06-23] MEDS: DOCUSATE SOD 100 MG CAP PO PRN (06:53)
[2024-06-23] MEDS: FLORASTOR (S. BOULARDII) 250 MG CAP PO SCH (09:59)
[2024-06-23] MEDS: FUROSEMIDE 20 MG/2 ML VIAL IV SCH (10:01)
--- NOTE | 2024-06-23 14:06 | DVHSR ---
APPROVED REPORT EXAM: Two-dimensional and M-mode echocardiogram with Doppler and color Doppler. Blood Pressure: 151/67 mmHg INDICATION Decompensated hf RISK FACTORS Height: 5'6", Weight: 182 DIMENSIONS LVDd3.4 (3.8-5.7cm)LA (2D)3.2 (1.9-4.0cm)Aortic Root3.2 (2.0-3.7cm) LVDs2.4 (2.5-4.0cm)LA (MM) (1.9-4.0cm)Aortic Cusp Exc1.6 (1.5-2.0cm) EF (%) 60.0 (55-70%)Rt. Atrium3.3 (1.9-4.0cm)Asc. Aorta cm IVSd1.2 (0.7-1.1cm)RV (D) (1.8-2.4cm) PWd1.0 (0.7-1.1cm) Mitral Valve MitralMitral Stenosis E wave1.07m/sMV Mean GR.3mmHg A wave1.13m/sMV Peak GR.8mmHg E/A ratio0.92D MVAcm2 DECEL [id number] 1/2 Osbs23pw IVRTmsDop MVA3.48cm2 Aortic Valve Aortic ValveAortic Stenosis V11.01m/Te Mean GR.4mmHg V21.34m/Te Peak GR.7mmHg LVOT Diameter1.8 (1.8-2.4cm)Doppler AVA1.92cm2 AI P 1/2 Rtcw647.83ms Pulmonic Valve V21.10m/s Tricuspid Valve TR Velocity1.70m/s [id number] Other Information Technically limited study due to body habitus, patient sitting up. Conclusion Technically good study. Sinus rhythm. Concentric LVH. Valves are normal. EF of 55-60% with normal RV function. Mild to moderate aortic insufficiency with mild tricuspid regu rgitation. No pericardial effusion masses or vegetations.
--- NOTE | 2024-06-23 14:08 | DVHPN2 ---
Subjective Patient is seen and examined at bedside. Complain of bilateral lower extremity edema with right worse than left. Complain of shortness for breath. Reviewed: Care Plan, H&P, Labs, Medications, Previous Orders, Radiology Changes from previous H/P or p: No Changes Eyes: No Pain, No Vision change, No Conjunctivae inflammation, No Eyelid inflammation, No Other, No Redness ENT: No Ear pain, No Ear discharge, No Nose pain, No Nose discharge, No Nose congestion, No Mouth pain, No Mouth swelling, No Throat pain, No Throat swelling, No Other Cardiovascular: Chest Pain Respiratory: Shortness of breath, Pleuritic Pain Gastrointestinal: No Nausea, No Vomiting, No Abdominal Pain, No Diarrhea, No Constipation, No Melena, No Hematochezia, No Other Genitourinary: No Dysuria, No Frequency, No Incontinence, No Hematuria, No Retention, No Other Musculoskeletal: No other, No neck pain, No shoulder pain, No arm pain, No back pain, No hand pain, No leg pain, No foot pain Skin: No Rash, No Lesions, No Jaundice, No Bruising, No Other Objective Vitals Vital Signs Date Time Temp Pulse Resp B/P (MAP) Pulse Ox O2 Delivery O2 Flow Rate FiO2 06/23/24 12:50 98.3 59 17 153/77 (102) 96 98.3 06/23/24 08:05 Room Air* 0 21 Intake/Output Intake and Output 06/23/24 07:00 Intake Total 900 ml Output Total 1100 ml Balance -200 ml Intake Oral 850 ml IV Total 50 ml Output Urine Total 1100 ml General Appearance: Alert, Cooperative, No acute distress HEENT: Atraumatic, PERRLA, EOMI, Mucous membr. moist/pink Neck: Supple Cardiovascular: Regular rate, Normal S1, Normal S2, No murmurs, Gallops, Rubs Abdomen: Normal bowel sounds, Soft, No tenderness Neuro: Cranial nerves 3-12 NL Psych/Mental Status: Mental status NL Medications Current Medications Medications Dose Ordered Sig/Elizabeth Route Start Time Stop Time Status Last Admin Dose Admin Nitroglycerin 0.4 mg Q5MINP PRN SL 06/22/24 14:45 Morphine Sulfate 2 mg Q30M PRN IV 06/22/24 14:45 Ceftriaxone Sodium 50 ml @ 100 mls/hr DAILY@09 IV 06/22/24 14:45 06/23/24 09:58 100 MLS/HR Saccharomyces Boulardii 250 mg DAILY PO 06/23/24 10:00 06/23/24 09:59 250 MG Doxycycline Monohydrate 100 mg Q12HR PO 06/22/24 22:00 06/23/24 10:00 100 MG Furosemide 20 mg DAILY IV 06/23/24 10:00 06/23/24 10:01 20 MG Morphine Sulfate 1 mg Q4HPRN PRN IV 06/22/24 14:45 06/22/24 17:10 1 MG Acetaminophen/ Hydrocodone Bitart 1 tab Q6HPRN PRN PO 06/22/24 14:45 06/23/24 10:00 1 TAB Acetaminophen 500 mg Q8HP PRN PO 06/22/24 14:45 Ondansetron HCl 4 mg Q6HP PRN IV 06/22/24 14:45 Docusate Sodium 100 mg BID PRN PO 06/22/24 14:45 Albuterol 2.5 mg Q4HPRN PRN NEB 06/22/24 14:45 Ipratropium [place] 0.5 mg Q4HPRN PRN NEB 06/22/24 14:45 Laboratory Results Laboratory Tests 06/23/24 05:55 Chemistry Test 06/23/24 05:55 Calcium Level 9.7 mg/dL (8.7-10.4) Urinalysis Test 06/22/24 11:40 Urine Color Colorless (Yellow) Urine Clarity Turbid (Clear) H Urine pH 6.0 (5.0-9.0) Urine Specific [place] 1.004 (1.001-1.035) Urine Protein Negative (Negative) Urine Ketones Negative (Negative) Urine Blood Trace /uL (Negative) H Urine Nitrite Negative (Negative) Urine Bilirubin Negative (Negative) Urine Urobilinogen Normal mg/dL (Negative) Urine Leukocyte Esterase 3+ /uL (Negative) Urine RBC 4 /hpf (0 - 4) Urine Microscopic WBC 223 /HPF (0-5) H Urine Squamous Epithelial Cells Few /hpf (<5) Urine Bacteria Few /hpf (None Seen) H Urine Yeast (Budding) Occasional /hpf (None Urine Glucose Normal mg/dL (Normal) Labs and/or images reviewed: Labs reviewed by me Assessment/Plan Assessment/Plan -mechanical fall -elevated D-dimer, rule out pulmonary embolism -acute decompensated diastolic heart failure -right lower extremity cellulitis -COPD -primary hypertension -pleural effusions Continuing current management. Continuing with Lasix. Continuing with IV antibiotic. Continuing with hypertensive medication. Continuing with nebulizer. We will get the patient out of bed and ambulate with physical therapy CT chest showed no pulmonary embolism. Patient does have pleural effusions This medical document was created using an electronic medical record system with [employer] computerized dictation system. Although this document has been carefully reviewed, there may still be some phonetic and typographical errors. These areas are purely typographical due to imperfections of the software programs, and do not reflect any compromise in the patient's medical care. Plan discussed with: Patient Date of Service: Jun 23, 2024 Billing Provider: ASTON ANDRES MD Common Visit Codes: [id number] INP/OBS CARE(HIGH) ASTON ANDRES MD Jun 23, 2024 14:08
[2024-06-24] VITALS (10 sets, daily range): BP systolic 118–156; BP diastolic 57–79; PULSE 62–80; RESP 16–20; TEMP 97.6–98.8; O2SAT 93–99
[2024-06-24] MEDS: MORPHINE SULFATE INJ 2 MG/ml SYRG IV PRN (16:23)
[2024-06-24] MEDS: ALBUTEROL SULF 2.5 MG/0.5ML(0.5%) NEB SOLN NEB PRN (20:16)
[2024-06-24] MEDS: IPRATROPIUM BROM 0.5 MG/2.5ML INH SOL NEB PRN (20:16)
--- NOTE | 2024-06-24 22:28 | DVHPN2 ---
Subjective The patient is seen and examined at bedside. The patient has a lot of questions about her congestive heart failure. Reviewed: Care Plan, H&P, Labs, Medications, Previous Orders, Radiology Changes from previous H/P or p: No Changes Eyes: No Pain, No Vision change, No Conjunctivae inflammation, No Eyelid inflammation, No Other, No Redness ENT: No Ear pain, No Ear discharge, No Nose pain, No Nose discharge, No Nose congestion, No Mouth pain, No Mouth swelling, No Throat pain, No Throat swelling, No Other Cardiovascular: Chest Pain Respiratory: Shortness of breath, Pleuritic Pain Gastrointestinal: No Nausea, No Vomiting, No Abdominal Pain, No Diarrhea, No Constipation, No Melena, No Hematochezia, No Other Genitourinary: No Dysuria, No Frequency, No Incontinence, No Hematuria, No Retention, No Other Musculoskeletal: No other, No neck pain, No shoulder pain, No arm pain, No back pain, No hand pain, No leg pain, No foot pain Skin: No Rash, No Lesions, No Jaundice, No Bruising, No Other Objective Vitals Vital Signs Date Time Temp Pulse Resp B/P (MAP) Pulse Ox O2 Delivery O2 Flow Rate FiO2 06/24/24 21:02 75 17 118/65 06/24/24 20:22 99 06/24/24 20:16 Room Air* 0 21 06/24/24 13:00 97.6 97.6 Intake/Output Intake and Output 06/24/24 07:00 Intake Total 2100 ml Output Total 2350 ml Balance -250 ml Intake Oral 2050 ml IV Total 50 ml Output Urine Total 2350 ml General Appearance: Alert, Cooperative, No acute distress HEENT: Atraumatic, PERRLA, EOMI, Mucous membr. moist/pink Neck: Supple Lungs: Clear to auscultation, Normal air movement Cardiovascular: Regular rate, Normal S1, Normal S2, No murmurs, Gallops, Rubs Abdomen: Normal bowel sounds, Soft, No tenderness Neuro: Cranial nerves 3-12 NL Psych/Mental Status: Mental status NL Medications Current Medications Medications Dose Ordered Sig/Elizabeth Route Start Time Stop Time Status Last Admin Dose Admin Nitroglycerin 0.4 mg Q5MINP PRN SL 06/22/24 14:45 Morphine Sulfate 2 mg Q30M PRN IV 06/22/24 14:45 06/24/24 16:23 2 MG Ceftriaxone Sodium 50 ml @ 100 mls/hr DAILY@09 IV 06/22/24 14:45 06/24/24 08:50 100 MLS/HR Saccharomyces Boulardii 250 mg DAILY PO 06/23/24 10:00 06/24/24 08:50 250 MG Doxycycline Monohydrate 100 mg Q12HR PO 06/22/24 22:00 06/24/24 21:00 100 MG Furosemide 20 mg DAILY IV 06/23/24 10:00 06/24/24 08:52 20 MG Morphine Sulfate 1 mg Q4HPRN PRN IV 06/22/24 14:45 06/24/24 20:32 1 MG Acetaminophen/ Hydrocodone Bitart 1 tab Q6HPRN PRN PO 06/22/24 14:45 06/24/24 08:51 1 TAB Acetaminophen 500 mg Q8HP PRN PO 06/22/24 14:45 Ondansetron HCl 4 mg Q6HP PRN IV 06/22/24 14:45 Docusate Sodium 100 mg BID PRN PO 06/22/24 14:45 06/24/24 08:50 100 MG Albuterol 2.5 mg Q4HPRN PRN NEB 06/22/24 14:45 06/24/24 20:16 2.5 MG Ipratropium [place] 0.5 mg Q4HPRN PRN NEB 06/22/24 14:45 06/24/24 20:16 0.5 MG Laboratory Results Laboratory Tests 06/23/24 05:55 Urinalysis Test 06/22/24 11:40 Urine Color Colorless (Yellow) Urine Clarity Turbid (Clear) H Urine pH 6.0 (5.0-9.0) Urine Specific [place] 1.004 (1.001-1.035) Urine Protein Negative (Negative) Urine Ketones Negative (Negative) Urine Blood Trace /uL (Negative) H Urine Nitrite Negative (Negative) Urine Bilirubin Negative (Negative) Urine Urobilinogen Normal mg/dL (Negative) Urine Leukocyte Esterase 3+ /uL (Negative) Urine RBC 4 /hpf (0 - 4) Urine Microscopic WBC 223 /HPF (0-5) H Urine Squamous Epithelial Cells Few /hpf (<5) Urine Bacteria Few /hpf (None Seen) H Urine Yeast (Budding) Occasional /hpf (None Urine Glucose Normal mg/dL (Normal) Labs and/or images reviewed: Labs reviewed by me Assessment/Plan Assessment/Plan -mechanical fall -elevated D-dimer, rule out pulmonary embolism -acute decompensated diastolic heart failure -right lower extremity cellulitis -COPD -primary hypertension -pleural effusions Continuing current management. Continuing with Lasix. Continuing with IV antibiotic. Continuing with hypertensive medication. Continuing with nebulizer. We will get the patient out of bed and ambulate with physical therapy CT chest showed no pulmonary embolism. Patient does have pleural effusions Explained to patient in length regarding to congestive heart failure in plan of care including using Lasix. This medical document was created using an electronic medical record system with [employer] computerized dictation system. Although this document has been carefully reviewed, there may still be some phonetic and typographical errors. These areas are purely typographical due to imperfections of the software programs, and do not reflect any compromise in the patient's medical care. Plan discussed with: Patient My Orders Orders - ASTON ANDRES MD Procedure Category Date Status Time Pt Request For Service PT 06/24/24 Logged 13:02 Date of Service: Jun 24, 2024 Billing Provider: ASTON ANDRES MD Common Visit Codes: [id number] INP/OBS CARE(HIGH) ASTON ANDRES MD Jun 24, 2024 22:28
[2024-06-25] VITALS (12 sets, daily range): BP systolic 121–160; BP diastolic 60–76; PULSE 68–98; RESP 15–19; TEMP 97.5–98.7; O2SAT 92–97
--- NOTE | 2024-06-25 13:19 | DVHPN2 ---
Reviewed: Care Plan, H&P, Labs, Medications, Previous Orders, Radiology Changes from previous H/P or p: No Changes Eyes: No Pain, No Vision change, No Conjunctivae inflammation, No Eyelid inflammation, No Other, No Redness ENT: No Ear pain, No Ear discharge, No Nose pain, No Nose discharge, No Nose congestion, No Mouth pain, No Mouth swelling, No Throat pain, No Throat swelling, No Other Cardiovascular: Chest Pain Respiratory: Shortness of breath, Pleuritic Pain Gastrointestinal: No Nausea, No Vomiting, No Abdominal Pain, No Diarrhea, No Constipation, No Melena, No Hematochezia, No Other Genitourinary: No Dysuria, No Frequency, No Incontinence, No Hematuria, No Retention, No Other Musculoskeletal: No other, No neck pain, No shoulder pain, No arm pain, No back pain, No hand pain, No leg pain, No foot pain Skin: No Rash, No Lesions, No Jaundice, No Bruising, No Other Objective Vitals Vital Signs Date Time Temp Pulse Resp B/P (MAP) Pulse Ox O2 Delivery O2 Flow Rate FiO2 06/25/24 12:22 72 19 128/62 06/25/24 10:25 93 0.0 06/25/24 09:00 97.8 97.8 06/25/24 06:23 Room Air* 21 Intake/Output Intake and Output 06/25/24 07:00 Intake Total 1840 ml Output Total 2850 ml Balance -1010 ml Intake Oral 1840 ml Output Urine Total 2850 ml Medications Current Medications Medications Dose Ordered Sig/Elizabeth Route Start Time Stop Time Status Last Admin Dose Admin Nitroglycerin 0.4 mg Q5MINP PRN SL 06/22/24 14:45 Morphine Sulfate 2 mg Q30M PRN IV 06/22/24 14:45 06/24/24 16:23 2 MG Ceftriaxone Sodium 50 ml @ 100 mls/hr DAILY@09 IV 06/22/24 14:45 06/25/24 10:06 100 MLS/HR Saccharomyces Boulardii 250 mg DAILY PO 06/23/24 10:00 06/25/24 10:07 250 MG Doxycycline Monohydrate 100 mg Q12HR PO 06/22/24 22:00 06/25/24 10:07 100 MG Furosemide 20 mg DAILY IV 06/23/24 10:00 06/25/24 10:07 20 MG Morphine Sulfate 1 mg Q4HPRN PRN IV 06/22/24 14:45 06/25/24 10:08 1 MG Acetaminophen/ Hydrocodone Bitart 1 tab Q6HPRN PRN PO 06/22/24 14:45 06/24/24 08:51 1 TAB Acetaminophen 500 mg Q8HP PRN PO 06/22/24 14:45 Ondansetron HCl 4 mg Q6HP PRN IV 06/22/24 14:45 Docusate Sodium 100 mg BID PRN PO 06/22/24 14:45 06/25/24 00:00 100 MG Albuterol 2.5 mg Q4HPRN PRN NEB 06/22/24 14:45 06/24/24 20:16 2.5 MG Ipratropium [place] 0.5 mg Q4HPRN PRN NEB 06/22/24 14:45 06/24/24 20:16 0.5 MG Laboratory Results Laboratory Tests 06/23/24 05:55 Urinalysis Test 06/22/24 11:40 Urine Color Colorless (Yellow) Urine Clarity Turbid (Clear) H Urine pH 6.0 (5.0-9.0) Urine Specific [place] 1.004 (1.001-1.035) Urine Protein Negative (Negative) Urine Ketones Negative (Negative) Urine Blood Trace /uL (Negative) H Urine Nitrite Negative (Negative) Urine Bilirubin Negative (Negative) Urine Urobilinogen Normal mg/dL (Negative) Urine Leukocyte Esterase 3+ /uL (Negative) Urine RBC 4 /hpf (0 - 4) Urine Microscopic WBC 223 /HPF (0-5) H Urine Squamous Epithelial Cells Few /hpf (<5) Urine Bacteria Few /hpf (None Seen) H Urine Yeast (Budding) Occasional /hpf (None Urine Glucose Normal mg/dL (Normal) Labs and/or images reviewed: Labs reviewed by me, Image(s) reviewed by me Assessment/Plan Assessment/Plan Secondary to urinary tract infection: Blood cultures urine cultures Rocephin Right lower extremity cellulitis: Clindamycin Slightly elevated D-dimer PE ruled out DVT ruled out Chronic COPD exacerbation: Albuterol Atrovent Hypertension Acute decompensated diastolic congestive heart failure Lasix Mechanical fall Fracture left 4,5,6 ribs Severe malnutrition Patient is hospice revoked Patient is full code Time spent 65 minutes Advanced care planning time 20 minutes -mechanical fall -elevated D-dimer, rule out pulmonary embolism -acute decompensated diastolic heart failure -right lower extremity cellulitis -COPD -primary hypertension Plan discussed with: Patient My Orders Orders - SURI EMANUEL MD Procedure Category Date Status Time Blood Culture ERROL 06/25/24 Logged 13:13 Urine Bacterial ERROL 06/25/24 Logged Culture 13:13 Date of Service: Jun 25, 2024 Billing Provider: SURI EMANUEL MD Common Visit Codes: [id number] CARE 30-74 MIN SURI EMANUEL MD Jun 25, 2024 13:19
[2024-06-25] MEDS: LACTULOSE 20Gm/30ML SOLN PO ONE (14:00)
[2024-06-26] VITALS (10 sets, daily range): BP systolic 118–141; BP diastolic 52–67; PULSE 68–84; RESP 16–18; TEMP 97.5–98.4; O2SAT 91–97
[2024-06-26] MEDS: ONDANSETRON HCL 4 MG/2 ML VIAL IV PRN (05:18)
--- NOTE | 2024-06-26 12:01 | DVHPN2 ---
Reviewed: Care Plan, H&P, Labs, Medications, Previous Orders, Radiology Changes from previous H/P or p: No Changes Eyes: No Pain, No Vision change, No Conjunctivae inflammation, No Eyelid inflammation, No Other, No Redness ENT: No Ear pain, No Ear discharge, No Nose pain, No Nose discharge, No Nose congestion, No Mouth pain, No Mouth swelling, No Throat pain, No Throat swelling, No Other Cardiovascular: Chest Pain Respiratory: Shortness of breath, Pleuritic Pain Gastrointestinal: No Nausea, No Vomiting, No Abdominal Pain, No Diarrhea, No Constipation, No Melena, No Hematochezia, No Other Genitourinary: No Dysuria, No Frequency, No Incontinence, No Hematuria, No Retention, No Other Musculoskeletal: No other, No neck pain, No shoulder pain, No arm pain, No back pain, No hand pain, No leg pain, No foot pain Skin: No Rash, No Lesions, No Jaundice, No Bruising, No Other Objective Vitals Vital Signs Date Time Temp Pulse Resp B/P (MAP) Pulse Ox O2 Delivery O2 Flow Rate FiO2 06/26/24 09:48 118/54 06/26/24 09:00 97.5 71 16 96 97.5 06/26/24 06:32 Room Air* 0 21 Intake/Output Intake and Output 06/26/24 07:00 Intake Total 850 ml Output Total 3100 ml Balance -2250 ml Intake Oral 850 ml Output Urine Total 3100 ml # Bowel Movements 2 General Appearance: Alert, Cooperative, No acute distress HEENT: Atraumatic, PERRLA, EOMI, Mucous membr. moist/pink Neck: Supple Lungs: Clear to auscultation, Normal air movement Cardiovascular: Regular rate, Normal S1, Normal S2, No murmurs, Gallops, Rubs Abdomen: Normal bowel sounds, Soft, No tenderness Neuro: Cranial nerves 3-12 NL Psych/Mental Status: Mental status NL Medications Current Medications Medications Dose Ordered Sig/Elizabeth Route Start Time Stop Time Status Last Admin Dose Admin Nitroglycerin 0.4 mg Q5MINP PRN SL 06/22/24 14:45 Morphine Sulfate 2 mg Q30M PRN IV 06/22/24 14:45 06/24/24 16:23 2 MG Ceftriaxone Sodium 50 ml @ 100 mls/hr DAILY@09 IV 06/22/24 14:45 06/26/24 09:49 100 MLS/HR Saccharomyces Boulardii 250 mg DAILY PO 06/23/24 10:00 06/26/24 09:49 250 MG Doxycycline Monohydrate 100 mg Q12HR PO 06/22/24 22:00 06/26/24 09:48 100 MG Furosemide 20 mg DAILY IV 06/23/24 10:00 06/26/24 09:48 20 MG Morphine Sulfate 1 mg Q4HPRN PRN IV 06/22/24 14:45 06/26/24 05:12 1 MG Acetaminophen/ Hydrocodone Bitart 1 tab Q6HPRN PRN PO 06/22/24 14:45 06/24/24 08:51 1 TAB Acetaminophen 500 mg Q8HP PRN PO 06/22/24 14:45 Ondansetron HCl 4 mg Q6HP PRN IV 06/22/24 14:45 06/26/24 05:18 4 MG Docusate Sodium 100 mg BID PRN PO 06/22/24 14:45 06/25/24 00:00 100 MG Laboratory Results Laboratory Tests 06/23/24 05:55 Urinalysis Test 06/22/24 11:40 Urine Color Colorless (Yellow) Urine Clarity Turbid (Clear) H Urine pH 6.0 (5.0-9.0) Urine Specific [place] 1.004 (1.001-1.035) Urine Protein Negative (Negative) Urine Ketones Negative (Negative) Urine Blood Trace /uL (Negative) H Urine Nitrite Negative (Negative) Urine Bilirubin Negative (Negative) Urine Urobilinogen Normal mg/dL (Negative) Urine Leukocyte Esterase 3+ /uL (Negative) Urine RBC 4 /hpf (0 - 4) Urine Microscopic WBC 223 /HPF (0-5) H Urine Squamous Epithelial Cells Few /hpf (<5) Urine Bacteria Few /hpf (None Seen) H Urine Yeast (Budding) Occasional /hpf (None Urine Glucose Normal mg/dL (Normal) Labs and/or images reviewed: Labs reviewed by me, Image(s) reviewed by me Assessment/Plan Assessment/Plan Sepsis secondary to urinary tract infection: Blood cultures pending, urine cultures pending , continue Rocephin Right lower extremity cellulitis: Clindamycin Slightly elevated D-dimer Recurrent falls PE ruled out DVT ruled out Chronic COPD exacerbation: Albuterol Atrovent Hypertension Acute decompensated diastolic congestive heart failure Lasix Mechanical fall Fracture left 4,5,6 ribs Severe malnutrition Patient is hospice revoked Patient is full code Time spent 65 minutes Advanced care planning time 20 minutes Patient lives alone Plan discussed with: Patient My Orders Orders - SURI EMANUEL MD Procedure Category Date Status Time Blood Culture ERROL 06/25/24 In Process 13:13 Urine Bacterial ERROL 06/25/24 Logged Culture 13:13 Date of Service: Jun 26, 2024 Billing Provider: SURI EMANUEL MD Common Visit Codes: [id number] INP/OBS CARE(HIGH) SURI EMANUEL MD Jun 26, 2024 12:01
[2024-06-26] MEDS: guaiFENesin-DM 100/10mg/5ml SYR PO SCH (14:05)
[2024-06-27] VITALS (7 sets, daily range): BP systolic 125–155; BP diastolic 53–87; PULSE 67–76; RESP 16–18; TEMP 97.6–98; O2SAT 92–95
--- NOTE | 2024-06-27 13:47 | DVHPN2 ---
Reviewed: Care Plan, H&P, Labs, Medications, Previous Orders, Radiology Changes from previous H/P or p: No Changes Eyes: No Pain, No Vision change, No Conjunctivae inflammation, No Eyelid inflammation, No Other, No Redness ENT: No Ear pain, No Ear discharge, No Nose pain, No Nose discharge, No Nose congestion, No Mouth pain, No Mouth swelling, No Throat pain, No Throat swelling, No Other Cardiovascular: Chest Pain Respiratory: Shortness of breath, Pleuritic Pain Gastrointestinal: No Nausea, No Vomiting, No Abdominal Pain, No Diarrhea, No Constipation, No Melena, No Hematochezia, No Other Genitourinary: No Dysuria, No Frequency, No Incontinence, No Hematuria, No Retention, No Other Musculoskeletal: No other, No neck pain, No shoulder pain, No arm pain, No back pain, No hand pain, No leg pain, No foot pain Skin: No Rash, No Lesions, No Jaundice, No Bruising, No Other Objective Vitals Vital Signs Date Time Temp Pulse Resp B/P (MAP) Pulse Ox O2 Delivery O2 Flow Rate FiO2 06/27/24 12:56 97.9 68 18 155/68 (97) 95 97.9 06/27/24 10:05 Room Air 0.0 06/27/24 10:05 21 Intake/Output Intake and Output 06/27/24 07:00 Intake Total 2540 ml Output Total 2425 ml Balance 115 ml Intake Oral 2540 ml Output Urine Total 2425 ml # Bowel Movements 1 General Appearance: Alert, Cooperative, No acute distress HEENT: Atraumatic, PERRLA, EOMI, Mucous membr. moist/pink Neck: Supple Lungs: Clear to auscultation, Normal air movement Cardiovascular: Regular rate, Normal S1, Normal S2, No murmurs, Gallops, Rubs Abdomen: Normal bowel sounds, Soft, No tenderness Neuro: Cranial nerves 3-12 NL Psych/Mental Status: Mental status NL Medications Current Medications Medications Dose Ordered Sig/Elizabeth Route Start Time Stop Time Status Last Admin Dose Admin Nitroglycerin 0.4 mg Q5MINP PRN SL 06/22/24 14:45 Morphine Sulfate 2 mg Q30M PRN IV 06/22/24 14:45 06/24/24 16:23 2 MG Ceftriaxone Sodium 50 ml @ 100 mls/hr DAILY@09 IV 06/22/24 14:45 06/27/24 10:32 100 MLS/HR Saccharomyces Boulardii 250 mg DAILY PO 06/23/24 10:00 06/27/24 10:31 250 MG Doxycycline Monohydrate 100 mg Q12HR PO 06/22/24 22:00 06/27/24 10:30 100 MG Furosemide 20 mg DAILY IV 06/23/24 10:00 06/27/24 10:31 20 MG Morphine Sulfate 1 mg Q4HPRN PRN IV 06/22/24 14:45 06/27/24 12:20 1 MG Acetaminophen/ Hydrocodone Bitart 1 tab Q6HPRN PRN PO 06/22/24 14:45 06/24/24 08:51 1 TAB Acetaminophen 500 mg Q8HP PRN PO 06/22/24 14:45 Ondansetron HCl 4 mg Q6HP PRN IV 06/22/24 14:45 06/27/24 05:28 4 MG Docusate Sodium 100 mg BID PRN PO 06/22/24 14:45 06/25/24 00:00 100 MG Guaifenesin/ Dextromethorphan 15 ml TID PO 06/26/24 14:00 06/27/24 06:02 15 ML Laboratory Results Laboratory Tests 06/23/24 05:55 Urinalysis Test 06/22/24 11:40 Urine Color Colorless (Yellow) Urine Clarity Turbid (Clear) H Urine pH 6.0 (5.0-9.0) Urine Specific [place] 1.004 (1.001-1.035) Urine Protein Negative (Negative) Urine Ketones Negative (Negative) Urine Blood Trace /uL (Negative) H Urine Nitrite Negative (Negative) Urine Bilirubin Negative (Negative) Urine Urobilinogen Normal mg/dL (Negative) Urine Leukocyte Esterase 3+ /uL (Negative) Urine RBC 4 /hpf (0 - 4) Urine Microscopic WBC 223 /HPF (0-5) H Urine Squamous Epithelial Cells Few /hpf (<5) Urine Bacteria Few /hpf (None Seen) H Urine Yeast (Budding) Occasional /hpf (None Urine Glucose Normal mg/dL (Normal) Microbiology Microbiology Date/Time Source Procedure Growth Status 06/26/24 12:16 Voided Urine Urine Culture - Preliminary Resulted 06/25/24 14:54 Blood Blood Culture - Preliminary NO GROWTH AFTER 24 HOURS OF INCUBATION. Resulted Labs and/or images reviewed: Labs reviewed by me, Image(s) reviewed by me Assessment/Plan Assessment/Plan Sepsis secondary to urinary tract infection: Blood cultures negative, urine cultures negative, treated with Rocephin Right lower extremity cellulitis: Clindamycin Slightly elevated D-dimer Recurrent falls PE ruled out DVT ruled out Chronic COPD exacerbation: Albuterol Atrovent Hypertension Acute decompensated diastolic congestive heart failure Lasix Mechanical fall Fracture left 4,5,6 ribs Severe malnutrition Patient is hospice revoked Patient is full code Time spent 65 minutes Advanced care planning time 20 minutes Patient lives alone Plan discussed with: Patient Date of Service: Jun 27, 2024 Billing Provider: SURI EMANUEL MD Common Visit Codes: [id number] INP/OBS CARE(HIGH) SURI EMANUEL MD Jun 27, 2024 13:47
[2024-06-27] MEDS ORDERED: LEVO500T91 PO (14:28)
--- NOTE | 2024-06-27 14:30 | DVHDS2 ---
Discharge Summary Date of Admission Jun 22, 2024 at 14:35 Date of Discharge: Jun 27, 2024 Admitting Diagnosis Urinary tract infection recurrent falls Wounds: Fracture left-sided ribs Labs/Diagnostic Data: Laboratory Results Test 06/23/24 05:55 06/22/24 14:00 06/22/24 11:40 06/22/24 10:40 White Blood Count 8.2 10^3/uL (4.4-10.8) Red Blood Count 4.56 10^6/uL (4.0-5.20) Hemoglobin 13.9 g/dL (12.2-16.2) Hematocrit 41.0 % (36.0-46.0) Mean Corpuscular Volume 89.9 fL (80.0-100.0) Mean Corpuscular Hemoglobin 30.5 pg (28.0-32.0) Mean Corpuscular Hemoglobin Concent 33.9 g/dL (32.0-36.0) Red Cell Distribution Width 14.2 % (11.8-14.3) Platelet Count 191 10^3/uL (140-450) Mean Platelet Volume 7.5 fL (6.9-10.8) Neutrophils (%) (Auto) 86.8 % (37.0-80.0) Lymphocytes (%) (Auto) 11.9 % (10.0-50.0) Monocytes (%) (Auto) 1.3 % (0.0-12.0) Eosinophils (%) (Auto) 0.0 % (0.0-7.0) Basophils (%) (Auto) 0.0 % (0.0-2.0) Neutrophils # (Auto) 7.1 10 ^3/uL (1.6-8.6) Lymphocytes # (Auto) 1.0 10 ^3/uL (0.4-5.4) Monocytes # (Auto) 0.1 10 ^3/uL (0-1.3) Eosinophils # (Auto) 0 10 ^3/uL (0-0.8) Basophils # (Auto) 0 10 ^3/uL (0-0.2) Nucleated Red Blood Cells 0.1 % Sodium Level 135 mmol/L (136-145) Potassium Level 4.6 mmol/L (3.5-5.1) Chloride Level 103 mmol/L (98-107) Carbon Dioxide Level 24 mmol/L (20-31) Anion Gap 8 (5-15) Blood Urea Nitrogen 18 mg/dL (9-23) Creatinine 0.97 mg/dL (0.550-1.02) Glomerular Filtration Rate Calc 56 mL/min (>90) BUN/Creatinine Ratio 18.6 (10.0-20.0) Serum Glucose 156 mg/dL (74-106) Calcium Level 9.7 mg/dL (8.7-10.4) Troponin I High Sensitivity 6 ng/L (</=34) Urine Color Colorless (Yellow) Urine Clarity Turbid (Clear) Urine pH 6.0 (5.0-9.0) Urine Specific [place] 1.004 (1.001-1.035) Urine Protein Negative (Negative) Urine Ketones Negative (Negative) Urine Blood Trace /uL (Negative) Urine Nitrite Negative (Negative) Urine Bilirubin Negative (Negative) Urine Urobilinogen Normal mg/dL (Negative) Urine Leukocyte Esterase 3+ /uL (Negative) Urine RBC 4 /hpf (0 - 4) Urine Microscopic WBC 223 /HPF (0-5) Urine Squamous Epithelial Cells Few /hpf (<5) Urine Bacteria Few /hpf (None Seen) Urine Yeast (Budding) Occasional /hpf (None Urine Glucose Normal mg/dL (Normal) D-Dimer, Quantitative 1.42 mg/L FEU (0.0-0.49) B-Type Natriuretic Peptide 48.08 pg/mL (0-100) Other Laboratory Tests 06/23/24 05:55 Brief Hx & Hospital Course: Female with a history of hypertension COPD CHF add mechanical fall. Came to the ER complaining of chest pain in the left side found to have fracture of the left four five and six ribs. Also had urinary tract infection treated with a Rocephin blood cultures negative urine cultures negative slightly elevated D- dimer PE ruled out. DVT ruled out patient feels better stable vital signs discharged back to home on hospice. Prescription for Levaquin and tramadol transmitted to pharmacy Consults/Reason for consult None Operations or Procedures Chest x-ray Condition at Discharge: Fair Final Diagnosis/Problems List Sepsis secondary to urinary tract infection: Blood cultures negative, urine cultures negative, treated with Rocephin Right lower extremity cellulitis: Clindamycin Slightly elevated D-dimer Recurrent falls PE ruled out DVT ruled out Chronic COPD exacerbation: Albuterol Atrovent Hypertension Acute decompensated diastolic congestive heart failure Lasix Mechanical fall Fracture left 4,5,6 ribs Severe malnutrition Discharge Disposition: Hospice - Home Discharge Instruct/Medications Diet: Cardiac 2g Na,low cholest Activity: Light activity Follow Up/Referral: Follow up with your primary Dr and hospice Dr Medications: Levaquin Tramadol Transmitted to pharmacy Discharge Statement: "Patient was advised to return to the ER or call 911 if any headaches, dizziness, shortness of breath, chest pain, abdominal pain, bleeding, fevers, or worsening of medical condition. Patient was counseled about treatment plan, medications, possible side effects, patientverbalized understanding. All questions were answered to the best of my ability. This discharge took greater then 30 minutes in planning, reviewing documentation, counseling the patient, and discussing with other team members." ASSESSMENT ASSESSMENT Hospital Course Improved Assessment Sepsis secondary to urinary tract infection: Blood cultures negative, urine cultures negative, treated with Rocephin Right lower extremity cellulitis: Clindamycin Slightly elevated D-dimer Recurrent falls PE ruled out DVT ruled out Chronic COPD exacerbation: Albuterol Atrovent Hypertension Acute decompensated diastolic congestive heart failure Lasix Mechanical fall Fracture left 4,5,6 ribs Severe malnutrition Date of Service: Jun 27, 2024 Billing Provider: SURI EMANUEL MD Common Visit Codes: 00530-LTC/OBS DISCH DAY >30min SURI EMANUEL MD Jun 27, 2024 14:30
== END 2024-06-27 18:30 | disposition home or self-care (01) | DRG 871 ==
LOC: EDBD 10:06 → ER 10:06 → OVERFLOW 14:35 → TELE-WESTW 16:43
PROVIDERS: ADMIT Family Medicine; ATTEND Family Medicine
DX: A41.9 Sepsis, unspecified organism (principal); E43 Unspecified severe protein-calorie malnutrition; I50.33 Acute on chronic diastolic (congestive) heart failure; S22.42XA Multiple fractures of ribs, left side, initial encounter for closed fracture; L03.115 Cellulitis of right lower limb; J44.1 Chronic obstructive pulmonary disease with (acute) exacerbation; N39.0 Urinary tract infection, site not specified; I11.0 Hypertensive heart disease with heart failure; R29.6 Repeated falls; W18.39XA Other fall on same level, initial encounter; Z51.5 Encounter for palliative care; Z88.2 Allergy status to sulfonamides; Z79.899 Other long term (current) drug therapy; Z90.710 Acquired absence of both cervix and uterus; Z79.84 Long term (current) use of oral hypoglycemic drugs; Z79.2 Long term (current) use of antibiotics; Z79.1 Long term (current) use of non-steroidal anti-inflammatories (NSAID); Z68.28 Body mass index [BMI] 28.0-28.9, adult; Y93.89 Activity, other specified; Y92.89 Other specified places as the place of occurrence of the external cause; Y99.8 Other external cause status; Z87.440 Personal history of urinary (tract) infections; Z86.73 Personal history of transient ischemic attack (TIA), and cerebral infarction without residual deficits
CPT/HCPCS: 36415; 71045; 71275; 78582; 80048; 81001; 83880; 84484; 85025; 85379; 87040; 87086; 93005; 93306; 93970; 94640; 97110; 97116; 97163; 97530; G0378; J2405; J3490